=== PATIENT | female | born 1980 | race Caucasian/White ===

== ENCOUNTER 2021-05-19 23:26 | Emergency (ER) | payer MEDICAID ==
--- NOTE | 2021-05-20 00:15 | EDM.PDOC ---
ED HPI GENERAL MEDICAL PROBLEM - General Chief Complaint: [employer] Problem Stated Complaint: HEAVY VAGINAL BLEEDING Time Seen by Provider: 05/19/21 23:44 Source of Information: Reports: Patient History Limitations: Reports: No Limitations - History of Present Illness INITIAL COMMENTS - FREE TEXT/NARRATIVE: Patient is a 41-year-old woman who is complaining of having a very heavy period with occasional clots but lots of blood which started earlier tonight. She is having some crampy back pain and slight suprapubic crampy pain and states this feels like when she had a previous miscarriage. Patient had a recent about 3 months ago and has had irregular periods since did not have her period last month. She denies feeling lightheaded or any vaginal discharge. Patient is sexually active and is not using any control. I have lectured her on this and she is aware she should be using control if she does not want an unwanted . She denies any fever chills or any nausea vomiting or diarrhea. She denies any hematuria or dysuria. Onset: Today, Sudden Duration: Heavy Location: Reports: Abdomen, Back Quality: Reports: Ache, Same as Previous Episode Severity: Moderate Improves with: Reports: None Worsens with: Reports: None Associated Symptoms: Reports: No Other Symptoms Back Pain Score (Numeric/FACES): 6 - Related Data Allergies Allergy/AdvReac Type Severity Reaction Status Date / Time No Known Allergies Allergy Verified 05/19/21 23:42 Home Meds: Home Meds . [No Known Home Meds] 05/19/21 [History] Past Medical History - Past Health History Medical/Surgical History: Denies Medical/Surgical History Oncologic (Cancer) History: Reports: Cervix Social & Family History - Tobacco Use Tobacco Use Status *Q: Current Some Day Tobacco User Years of Tobacco use: 10 Packs/Tins Daily: 0.5 ED ROS GENERAL - Review of Systems Review Of Systems: Comprehensive ROS is negative, except as noted in HPI. ED EXAM - Physical Exam Exam: See Below Exam Limited By: No Limitations General Appearance: Alert, No Apparent Distress Head: Normocephalic Neck: Supple, Non-Tender, Full Range of Motion Respiratory/Chest: No Respiratory Distress, Lungs Clear, Normal Breath Sounds Cardiovascular: Regular Rate, Rhythm, No JVD GI/Abdominal Exam: Normal Bowel Sounds, Soft, Non-Tender, No Organomegaly, No Distention, No Mass Back Exam: Normal Inspection. No: CVA Tenderness (L), CVA Tenderness (R) Extremities: Normal Inspection, No Pedal Edema Neurological: Alert, Oriented Psychiatric: Normal Affect, Normal Mood Lymphatic: No Adenopathy Course - Vital Signs Text/Narrative:: Patient's urine shows no urinary tract infection and no . I am advising patient to take ibuprofen and/or Tylenol and increase fluid intake. She may call her D[employer] if symptoms continue he may return to emergency department if worse. I am not starting her on any control at this time because she has only been bleeding for a few hours. Last Recorded V/S: Last Vital Signs Temp 98.8 F 05/19/21 23:42 Pulse 88 05/19/21 23:42 Resp 18 05/19/21 23:42 BP 139/105 H 05/19/21 23:42 Pulse Ox 100 05/19/21 23:42 - Orders/Labs/Meds Orders: Active Orders 24 hr Category Date Time Status UA W/O MICROSCOPIC [URIN] Stat Lab 05/20/21 00:26 Ordered Labs: Laboratory Tests 05/20/21 05/20/21 Range/Units 00:14 00:14 Urine Color Yellow (Yellow) Urine Appearance Clear (Clear) Urine pH 5.5 (5.0-8.0) Ur Specific [place] > or = 1.030 (1.005-1.030) Urine Protein Negative (Negative) Urine Glucose (UA) Negative (Negative) Urine Ketones Negative (Negative) Urine Occult Blood 2+ H (Negative) Urine Nitrite Negative (Negative) Urine Bilirubin 1+ H (Negative) Urine Urobilinogen 1.0 (0.2-1.0) Ur Leukocyte Esterase Negative (Negative) Urine HCG, Qual Negative (NEGATIVE) Departure - Departure Time of Disposition: 00:47 Disposition: Home, Self-Care 01 Condition: Good Clinical Impression: Menorrhagia - Discharge Information Instructions: Menorrhagia, [id number] Referrals: PCP,None [Primary Care Provider] - Forms: ED Department Discharge Additional Instructions: Increase fluids. Motrin and/or Tylenol. Follow-up with [facility] if symptoms continue and for recheck or the next week or 2. Return to ER if your symptoms are worse or not improving. Sepsis Event Note (ED) - Evaluation Sepsis Screening Result: No Definite Risk - Focused Exam Vital Signs: Vital Signs Temp Pulse Resp BP Pulse Ox 05/19/21 23:42 98.8 F 88 18 139/105 H 100 - My Orders Last 24 Hours: My Active Orders 05/20/21 00:26 UA W/O MICROSCOPIC [URIN] Stat - Assessment/Plan Last 24 Hours: My Active Orders 05/20/21 00:26 UA W/O MICROSCOPIC [URIN] Stat
== END 2021-05-20 00:59 | disposition home or self-care (01) ==
LOC: JD.ED 23:26 → MERGE 23:26 → JD.ED 05-20 00:59
DX: N92.0 Excessive and frequent menstruation with regular cycle (principal)
CPT/HCPCS: 81003; 81025; 99283; 99284

== ENCOUNTER 2022-03-29 05:21 | Emergency (ER) | payer SELFPAY ==
[2022-03-29] MEDS ORDERED: HYDROmorphone 0.5 MG/0.5 ML Syringe IVPUSH ONE ×2 (06:02→07:21)
[2022-03-29] MEDS ORDERED: Sodium Chloride 0.9% 10 ML Syringe FLUSH PRN (06:02)
[2022-03-29] MEDS ORDERED: Sodium Chloride 0.9% 1,000 ML IV SCH (06:15)
[2022-03-29] MEDS ORDERED: Ketorolac 30 MG/ML SDV IVPUSH ONE (07:21)
[2022-03-29] MEDS ORDERED: methylPREDNISolone Sodium Succinate 125 MG/2 ML SDV IVPUSH ONE (07:22)
[2022-03-29] MEDS ORDERED: Ondansetron 4 MG/2 ML SDV IVPUSH ONE (07:42)
== END 2022-03-29 09:06 | disposition home or self-care (01) ==
LOC: JD.ED 05:21
DX: S33.5XXA Sprain of ligaments of lumbar spine, initial encounter (principal); F17.210 Nicotine dependence, cigarettes, uncomplicated; Z91.040 Latex allergy status
CPT/HCPCS: 36415; 81001; 85025; 86140; 96374; 96375; 96376; 99283; J1170; J1885; J2405; J2930; J3490; J7030